=== PATIENT | male | born 1990 | race Caucasian/White ===

== ENCOUNTER 2016-09-03 19:21 | Emergency (ER) | payer OTHER ==
[~2016-09-03] VITALS: Ht 175.3 cm; Wt 127.0 kg
[2016-09-03] MEDS ORDERED: CLARITIN,ALAVAR10 MG PO (22:00)
[2016-09-03 22:18] VITALS: BP 140/80
== END 2016-09-03 22:19 | disposition home or self-care (01) ==
LOC: RME 19:21 → EME 19:21 → RME 22:19
DX: T78.40XA Allergy, unspecified, initial encounter (principal); H57.9 Unspecified disorder of eye and adnexa
CPT/HCPCS: 99281; 99283